=== PATIENT | female | born 1975 | race Caucasian/White ===

== ENCOUNTER 2022-03-05 08:49 | Emergency (ER) | payer BC, SELFPAY ==
[2022-03-05 08:54] VITALS: BP 134/77; PULSE 81; RESP 18; TEMP 37.1; O2SAT 96; BMI 30.8
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
[2022-03-05 09:30] VITALS: PULSE 88; RESP 20; O2SAT 96
--- OUTSIDE RECORDS SUMMARY | 2022-03-05 09:30 | XMS_ITS | Clinical Summary ---
:1975 Author Organization [facility] [place] [address] Care Team Providers Name Role Phone Jennifer Middleton MD Primary Care Provider [phone] Allergies No known active allergies Medications No known medications Active Problems No known active problems Immunizations Name Administration Dates Next Due Tdap 07/12/2015 Family History Medical History Relation Name Comments Heart Disease Father Cancer-colon Mother Relation Name Status Comments Father Mother Social History Tobacco Use Types Packs/Day Years Used Date Current Every Day Smoker Cigarettes 0.25 Smokeless Tobacco: Never Used Tobacco Cessation: Ready to Quit: No; Co unseling Given: Yes Alcohol Use Standard Drinks/Week Comments Yes 0 (1 standard drink = 0.6 oz pure alcoho l) occasional Alcohol Habits Answer Date Recorded How often do you have a drink containing alcohol? Not asked How many drinks containing alcohol do you have on a typical Not asked day when you are drinking? How often do you have six or more drinks on one occasion? No t asked Comment: occasional 07/12/2015 Sex Assigned at Date Recorded Not on file Obstetrics History Para Term AB IAB SAB Ectopic Multiple Living Live Births 5 1 1 4 2 2 1 Date Outcome GA Total Labor/2nd/3rd Weight Sex Delivery Anes PTL Pooja A 1 A5 Name Clin Labor Ectopic Ectopic SAB SAB 08/10 Term 40w F Vag 0d Last Filed Vital Signs Vital Sign Reading Time Taken Comments Blood Pressure 122/72 08/16/2015 3:27 PM CDT Pulse 84 08/16/2015 3:27 PM CDT Temperature 37.1 ??C (98.7 ??F) 08/16/2015 3:27 PM CDT Respiratory Rate - - Oxygen Saturation 99% 08/16/2015 3:27 PM CDT Inhaled Oxygen Concentration - - Weight 79.7 kg (175 lb 12.8 oz) 08/16/2015 3:27 PM CDT Height 163.9 cm (5' 4.53) 08/16/2015 3:27 PM CDT Body Mass Index 29.68 08/16/2015 3:27 PM CDT Plan of Treatment Health Maintenance Due Date Last Done Comments Pneumococcal series for age 19-64 (1 - 1982 PCV) Hepatitis C screening for age 18-79 1994 Depression screening for age 12+ 07/12/2016 07/12/2015 BMI (ht and wt on same day) for age 18+ 08/15/2016 08/16/19 16, 07/12/2015 Pap test for age 21-65 07/12/2018 07/12/2015, 07/12/2015 COVID-19 vaccine series (2 - Booster for 11/05/2020 021 Horacio series) Colonoscopy through age 75 2021 Lipids for age 45-75 2021 07/16/2015 Mammogram for age 45-75 2021 Influenza for age 9-49 02/02/2022 Tetanus booster 07/12/2025 07/12/2015 Tdap Completed 07/12/2015 Results Not on filefrom Last 3 Months Insurance Payer Benefit Plan / Subscriber ID Effective Dates Phone Addre ss Type Group BLUE CROSS BLUE CROSS OF [id number] 2020-Present [address] [address] [place] [address] [facility] Employer 06/04/2000 ATT N: [employer] (Home) [address] [place] [address] Care Teams Manugrapher Relationship Specialty Start Date End Date Jennifer Middleton MD PCP - General Family Practice 04/08/[address] [place] [address]
--- OUTSIDE RECORDS SUMMARY | 2022-03-05 09:31 | XMS_ITS | Encounter Summary ---
:1975 Author Organization [facility] Address [address] [place] [address] Care Team Providers Name Role Phone Unavailable Primary Care Provider Unavailable Reason for Visit Reason Onset Date Comments Outpatient COVID-19 Testing 04/19/2020 Encounter Details Date Type Department Care Team Description 04/19/2020 External Outreach Department of Itzel Vazquez Infection Upper Medicine, [place] [facility] (Primary Clinic, in [place], [address]) [place], [place] [address] [facility] [address] [place], [place] [phone] [id number] (Work) [phone] Social History Tobacco Use Types Packs/Day Years Used Date Smoking Tobacco: Every Day Sex Assigned at Date Recorded Not on file documented as of this encounter Progress Notes Yumiko Thomas ROrlando. - 04/19/2020 8:42 AM CST Encounter created for the drive-through COVID-19 testing. OR SALES OPERATIONS MANAGER documented in this encounter Plan of Treatment Not on filedocumented as of this encounter Procedures Procedure Name Priority Date/Time Associated Diagnosis Comme nts SARS CORONAVIRUS-2 Routine 04/19/2020 8:44 AM Infection Upper Results for this RNA, V SENIOR SALES OPERATIONS MANAGER Respiratory procedure are i n the results section. documented in this encounter Results SARS Coronavirus-2 RNA, V Symptomatic (04/19/2020 8:44 AM SENIOR SALES OPERATIONS MANAGER) [facility] Method Time Signature SARS-CoV-2 Swab, 04/20/2020 [facility] Specimen Nasopharynx 8:19 AM SENIOR SALES OPERATIONS MANAGER Source SARS CoV-2 Undetected Undetected 04/20/2020 [facility] RNA, TMA 8:19 AM SENIOR SALES OPERATIONS MANAGER Comment: SARS-CoV-2 RNA absent. This result does not rule out COVID-19 in the patient, as the sensitivity of the test depends o n the timing of the specimen collection and the quality of the specim en. Result should be correlated with patient's history and clinical presentat ion. ----ADDITIONAL INFORMATION---- This test is performed using the Aptima SARS-CoV-2 assay ([employer] which has received Emergency Use Authori zation (EUA) by the U.S. Food and Drug Administration. Fact sheets for this Emergency Use Autho rization (EUA) assay can be found at the following links: For Healthcare Providers: https://www.[place] a.gov/media/449260/download For Patients: https://www.fda.gov/media/ 386193/download Specimen Anatomical Collection Method Collection Time Receive d Time (Source) Location / / Volume Laterality Varies 04/19/2020 8:44 AM 0 (Nasopharynx) SENIOR SALES OPERATIONS MANAGER 10:04 PM SENIOR SALES OPERATIONS MANAGER Almas Schmidt P.A.-C. LAB MICROBIOLOGY - GENERAL O RDERABLES Performing Organization Address City/State/ZIP Code Phon e Number [facility] [address] [place] [address] [phone] [facility] [place] [address] System in [address] documented in this encounter Visit Diagnoses Diagnosis Infection Upper Respiratory - Primary documented in this encounter Additional Health Concerns Infection Onset Date Last Indicated Resolved Time COVID19 Pending 04/19/2020 04/19/2020 04/20/2020 8:20 AM SENIOR SALES OPERATIONS MANAGER documented as of this encounter
--- OUTSIDE RECORDS SUMMARY | 2022-03-05 09:31 | XMS_ITS | Encounter Summary ---
:1975 Author Organization [facility] Address [address] [place] [address] Care Team Providers Name Role Phone Unavailable Primary Care Provider Unavailable Encounter Details Date Type Department Care Team Description 12/23/[address] [facility] Margo Sanchez M.D. Social History Tobacco Use Types Packs/Day Years Used Date Smoking Tobacco: Never Assessed Sex Assigned at Date Recorded Not on file documented as of this encounter Last Filed Vital Signs Vital Sign Reading Time Taken Comments Blood Pressure 100/64 12/23/2012 9:22 AM CDT Pulse 72 12/23/2012 9:22 AM CDT Temperature - - Respiratory Rate 14 12/23/2012 9:22 AM CDT Oxygen Saturation - - Inhaled Oxygen Concentration - - Weight 75.5 kg (166 lb 7.2 oz) 12/23/2012 9:22 AM CDT Height 165 cm (5' 4.96) 12/23/2012 9:22 AM CDT Body Mass Index 27.73 12/23/2012 9:22 AM CDT documented in this encounter H&P Notes Margo Sanchez M.D. - 12/23/2012 9:11 AM CDT [id number] CHIEF COMPLAINT/REASON FOR VISIT Ruby is here for a Preemployment physical. 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 The completed history and physical form will be scanned into her EMR. I see no contraindications for employment. Her only medical issue is that she smokes but she is stopping on her own. She is currentlydown to 2 cigarettes a day and is soon going to be coming back to 1 a day and then she thinks she should be able to quit and I encouraged her to continue in that process. Margo Sanchez M.D./herbert Electronically Signed By: MARGO SANCHEZ MD On: 12/23/2012 03:29 PM Source: [facility] MHSDOLBEYNONRADSYS Document Id: [id number] documented in this encounter Procedure Notes Veronica Kowalski, L.P.N. - 12/23/2012 9:25 AM CDT Vision Testing Vision Testing Entered On: 12/23/2012 9:26 CDT Performed On: 12/23/2012 9:25 CDT by VERONICA KOWALSKI Vision Testing Corrective Lenses : Contact lenses Eye, Right with Correction : 20/20 Eye, Left w/Correction : 20/20 VERONICA KOWALSKI - 12/23/2012 9:25 CDT Source: [facility] POWERCHART Document Id: [id number] CDT!5 documented in this encounter Miscellaneous Notes Miscellaneous - Margo Sanchez M.D. - 12/23/2012 10:08 AM CDT Ambulatory Patient Summary [address] [address] Visit Information Name: RUBY GRISSOM [facility] Number: [id number] Current Date: 12/23/2012 10:08:42 Physicians Attending Provider: MARGO SANCHEZ MD Primary Care Provider: PCP, ELSEWHERE Your Medications Here is a list of your medications. It is important to take your medications as directed. Use a pillbox or chart to help remind you to take your medications. Please let your doctor or nurse know if you have problems taking your medications. Medication/Strength Dose Route Frequency Indications/Special Instructions/Comments/Notes No Medications found Attention: If you have any medications at home that are not on this list, DO NOT take them until youcontact your provider for clarification. Your Allergies & Intolerances Substance Reaction Symptoms Category Comments No Known Medication Allergies Drug Your Problem List Problem Status Onset Comments None Active Your Upcoming Appointments Date Time Location Reason Provider No Appointments found Your Goals/Additional instructions: Source: [facility] POWERCHART Document Id: [id number] Anthony - Margo Sanchez M.D. - 12/23/2012 10:08 AM CDT Ambulatory Depart Summary [id number] [place] [address] Visit Information Name: RUBY GRISSOM [facility] Number: [id number] Visit Date: 12/23/2012 10:08:41 Attending Provider: MARGO SANCHEZ MD Primary Care Provider: PCP, RUBY CHAVEZ VINITA has been given the following list of medications: Your Medications It is important to take your medications as directed. Use a pill box or chart to help remind you to take your medications. Please let your doctor or nurse know if you have problems taking your medications. Medication/Strength Dose Route Frequency Indications/Special Instructions/Comments/Notes No Medications found Attention: If you have any medications at home that are not on this list, DO NOT take them until youcontact your provider for clarification. Additional Information: Source: [facility] POWERCHART Document Id: [id number] Miscellaneous - Veronica Kowalski, L.P.N. - 12/23/2012 9:22 AM CDT Adult Sap Portal Developer Intake/History Document Has Been Updated Adult Sap Portal Developer Intake/History Entered On: 12/23/2012 9:25 CDT Performed On: 12/23/2012 9:22 CDT by VERONICA KOWALSKI Intake Chief Complaint : [employer] pre employment Temperature Core : 36.9 DegC(Converted to: 98.4 DegF) Peripheral Pulse Rate : 72 /min VERONICA KOWALSKI - 12/23/2012 9:22 CDT Respiratory Rate : 14 /min VERONICA KOWALSKI - 12/23/2012 9:27 CDT Heart Rhythm : Regular Systolic Blood Pressure : 100 mmHg Diastolic Blood Pressure : 64 mmHg NIBP Mean : 76 mmHg BP Location : Left upper extremity Blood Pressure Cuff Size : Regular Height : 165 cm(Converted to: 5 ft 5 inch(es), 64.96 inch(es)) Actual Weight : 75.5 kg(Converted to: 166 lb 7 oz) Weight Source : Standing scale Dosing Weight Clinic : 75.5 kg Clinic BSA : 1.86 Body Mass Index : 27.73 kg/m2 VERONICA KOWALSKI - 12/23/2012 9:22 CDT General Info Information Given By : Patient Languages : [place] VERONICA KOWALSKI - 12/23/2012 9:22 CDT Subjective Pain Symptoms : No VERONICA KOWALSKI - 12/23/2012 9:22 CDT Dependent Habits Tobacco Use/Currently Using : Yes Tobacco Use/Advised to Quit : Yes Smoking Status : Current every day smoker VERONICA KOWALSKI - 12/23/2012 9:22 CDT Tobacco Use Grid Type : Cigarettes VERONICA KOWALSKI - 12/23/2012 9:22 CDT Source: [facility] Document Id: [id number] CDT!3 documented in this encounter Plan of Treatment Not on filedocumented as of this encounter Visit Diagnoses Not on filedocumented in this encounter
--- OUTSIDE RECORDS SUMMARY | 2022-03-05 09:31 | XMS_ITS | Encounter Summary ---
:1975 Author Organization [facility] Address [address] [place] [address] Care Team Providers Name Role Phone Unavailable Primary Care Provider Unavailable Encounter Details Date Type Department Care Team Description 09/28/2020 Orders Only [facility] PCP [facility] Sa bebe Taylor M.D. [address] [place] [address] [phone] (Wo rk) Social History Tobacco Use Types Packs/Day Years Used Date Smoking Tobacco: Every Day Sex Assigned at Date Recorded Not on file documented as of this encounter Plan of Treatment Not on filedocumented as of this encounter Visit Diagnoses Not on filedocumented in this encounter
--- OUTSIDE RECORDS SUMMARY | 2022-03-05 09:31 | XMS_ITS | Encounter Summary ---
:1975 Author Organization [facility] Address [address] [place] [address] Care Team Providers Name Role Phone Unavailable Primary Care Provider Unavailable Encounter Details Date Type Department Care Team Description 04/19/2020 Admin Visit Department of Family Medicine, [facility] [place] in [place], [place] [address] [id number] Social History Tobacco Use Types Packs/Day Years Used Date Smoking Tobacco: Every Day Sex Assigned at Date Recorded Not on file documented as of this encounter Plan of Treatment Not on filedocumented as of this encounter Visit Diagnoses Not on filedocumented in this encounter Additional Health Concerns Infection Onset Date Last Indicated Resolved Time COVID19 Pending 04/19/2020 04/19/2020 04/20/2020 8:20 AM BRIM CUTTER documented as of this encounter
--- OUTSIDE RECORDS SUMMARY | 2022-03-05 09:31 | XMS_ITS | Clinical Summary ---
:1975 Author Organization [facility] Address [address] [place] [address] Care Team Providers Name Role Phone Unavailable Primary Care Provider Unavailable Source Comments Patient records contain information from all sites at [facility]. For routine questions regarding patient records, call [phone] during business hours, M-F 8:00 AM - 5:00 PM Central Time. Record requests for emergency care only can be directed to [phone] at any time.[facility] Social History Tobacco Use Types Packs/Day Years Used Date Smoking Tobacco: Every Day Sex Assigned at Date Recorded Not on file Last Filed Vital Signs Vital Sign Reading [...] Mass Index 27.73 12/23/2012 9:22 AM CDT Plan of Treatment Health Maintenance Due Date Last Done Comments CT Colonography 1975 Cervical Cancer Screening 1975 Cologuard 1975 Colonoscopy 1975 Colorectal Cancer Screening 1975 FIT 1975 Fasting Glucose for Diabetes Screening 1975 HIV Screening 1975 Hepatitis B Vaccines (1 of 3 - 3-dose 1975 series) Hepatitis C Screening 1975 Lipid (Cholesterol) Screening 1975 Mammogram 1975 Pneumococcal vaccine (0-64 years) (1 - 1982 PCV) COVID-19 Vaccine (2 - Booster for Horacio 11/05/20202020 series) Depression Screening (Annual PHQ-2) 06/04/2021 Influenza Vaccine (#1) 2022 DTaP,Tdap,and Td Vaccines (2 - Td or Tdap) 07/12/202507/12, 03/09/2004 Insurance Payer Benefit Plan / Subscriber ID Effective Dates Phone Addre ss Type Group [facility] [id number] 2018-Sharon [phone] [address] PPO [facility] [address] [place] [address]
[2022-03-05] MEDS: ONDANSETRON 2 MG/ML inj 4 MG IVP (09:35)
[2022-03-05] MEDS: 0.9 % SODIUM CHLORIDE 500 ML 500 ML IV (09:35)
[2022-03-05] MEDS: MORPHINE 4 MG/ML INJ IVP (09:36)
[2022-03-05 10:00] VITALS: PULSE 80; RESP 20; O2SAT 98
[2022-03-05] MEDS: HYDROmorphone 0.5 mg/0.5 ml inj IVP ×2 (10:04→12:13)
[2022-03-05 12:00] VITALS: BP 122/62; PULSE 83; RESP 20; O2SAT 95
[2022-03-05 12:11] LABS: Basophils Absolute Auto 0.02 K/uL (0.00-0.30); Basophils Percent Auto 0.2 % (0.0-3.0); Eosinophils Absolute Auto 0.02 K/uL (0.00-0.50); Eosinophils Percent Auto 0.2 % (0.0-7.0); Immature Granulocytes Abs Auto 0.03 K/uL (0.00-0.30); Lymphocytes Percent Auto 19.7 % (20-44); Mean Corpuscular HGB Conc 33 gm/dL (32-36); Mean Corpuscular Hemoglobin 30 pg (26-34); Mean Corpuscular Volume 89 fL (80-100); Monocytes Percent Auto 5.8 % (0.0-11.0); Neutrophils Percent Auto 73.8 % (42.0-72.0); Platelet Count* 302 K/uL (140-440); RDW Coefficient of Variation % 12.8 % (11.5-15.5); Red Blood Count 5.04 m/uL (4.00-5.20); White Blood Count* 10.76 K/uL (4.50-11.00)
[2022-03-05] MEDS: KETOROLAC 15 MG/ML inj IVP (12:13)
[2022-03-05 12:21] LABS: Slide Review Reflex No
[2022-03-05 12:24] LABS: Chloride* 106 mmol/L (96-114); Potassium* 3.8 mmol/L (3.6-5.1); Sodium* 140 mmol/L (135-149)
[2022-03-05 12:27] LABS: Carbon Dioxide* 24 mmol/L (20-32); Creatinine* 0.7 mg/dL (0.5-1.5); Est. Creatinine Clearance* 91.32; Estimated Glomerular Filt Rate 109 ml/min
[2022-03-05 12:28] LABS: Blood Urea Nitrogen* 11 mg/dL (5-24); Calcium* 9.1 mg/dL (8.4-10.6); Glucose* 95 mg/dL (60-115)
[2022-03-05 12:47] LABS: PCR FLU A Negative PCR FLU A (Negative); PCR FLU B Negative PCR FLU B (Negative)
[2022-03-05 13:01] LABS: SARS PCR* Negative SARS-CoV-2 (Negative)
--- NOTE | 2022-03-05 13:21 | ED.NURSE ---
assisted pt dressing, R arm in sling. pt given note for work and instymeds for [place].
== END 2022-03-05 13:24 | disposition home or self-care (01) ==
PROVIDERS: Emergency Provider Family Medicine; PCP Family Medicine
DX: S42.001A Fracture of unspecified part of right clavicle, initial encounter for closed fracture (principal); V86.65XA Passenger of 3- or 4- wheeled all-terrain vehicle (ATV) injured in nontraffic accident, initial encounter; Y93.I9 Activity, other involving external motion; Y92.838 Other recreation area as the place of occurrence of the external cause; Y99.8 Other external cause status
CPT/HCPCS: 36415; 71260; 72125; 73000; 73030; 80048; 85025; 87631; 93005; 96361; 96374; 96375; 96376; 99285; 99291; J1170; J1885; J2270; J2405; J7120; Q9967

== ENCOUNTER 2022-03-09 09:56 | Day surgery (SDC) | payer BC, SELFPAY ==
[2022-03-09] VITALS (13 sets, daily range): BP systolic 100–117; BP diastolic 45–82; PULSE 64–97; RESP 16; TEMP 36.4–37; O2SAT 92–97; BMI 34.2
--- NOTE | 2022-03-09 | CRLHL7_ITS ---
For Patients: As a result of the Cures Act, medical imaging exams and procedure reports are released immediately into your electronic medical record. You may view this report before your referring provider. If you have questions, please contact your health care provider. Indication: Intraop Technique: Single view of the right clavicle Comparison: No comparison Findings: Postsurgical fixation of a comminuted right clavicle fracture that appears grossly aligned. Postoperative soft tissue swelling and gas. Dictated by Lois Andrew MD @ 03/09/2022 2:40:04 PM (Electronically Signed)
[2022-03-09] MEDS: LACTATED RINGERS 1000 ML 1,000 ML 100 ML IV (10:25)
[2022-03-09] MEDS: SODIUM CHLORIDE 0.9 % (FLUSH) 10 ML SYRINGE IVF (10:25)
[2022-03-09] MEDS: MIDAZOLAM HCL 1 MG/ML inj IVP (11:05)
[2022-03-09] MEDS: fentaNYL 100 MCG/2 ML inj IVP (11:05)
--- NOTE | 2022-03-09 11:16 | SUR.PREOP ---
TIME?OUT:?1100 PT/RN/MDA?VERIFICATION?OF?SURGICAL?SITE,?PROCEDURE,?AND?CONSENT OBTAINED?PRIOR?TO?INVASIVE?PROCEDURE.
--- NOTE | 2022-03-09 11:43 | P.NB_ITS ---
Nerve Block Nerve Block Date Seen: 03/09/22 Type of block requested by surgeon for post-operative analgesia: interscalene Side: right Time out performed: Yes Verification of patient name: Yes Verification of date of : Yes Site marking: site marked Name of person performing procedure: Aston Assistants, if any: Ahsan Continuous monitoring Was continuous monitoring of O2 sat, B/P, chemical reclamation equipment operator, recorded every 15 minutes?: Yes Procedure Checklist: sterile prep, needles and gloves Ultrasound guided. Images saved: Yes Medications given in 5ml increments after negative aspiration: Ropivicaine %: 0.5 mL: 20 Needle gauge: 22 Decadron (mg): 10 Precedex (mcg): 25 Patient tolerated procedure well: Yes Block Charges Block Charge (with Pro Fee): Brachial Plexus Use of Ultrasound Machine for Block: Yes- US Guidance/pain block
--- NOTE | 2022-03-09 12:50 | P.ORPRC_ITS ---
Procedure Note Date of procedure: 03/09/22 Procedure: SURGEON: Kishan Pemberton MD CNC FIELD SERVICE ENGINEER: Angie Campos PA-C PREOPERATIVE DIAGNOSIS: Comminuted and displaced 4 part right clavicle shaft fracture POSTOPERATIVE DIAGNOSIS: Comminuted and displaced 4 part right clavicle shaft fracture NAME OF OPERATION: ORIF ANESTHESIA: General ESTIMATED BLOOD LOSS: 5 mL COMPLICATIONS: None SPECIMENS: None DRAINS: None PREOPERATIVE ANTIBIOTICS: Ancef 2 g INDICATIONS: The patient is a 46-year-old female who sustained a high-energy right clavicle fracture. Given the amount of displacement, ORIF was recommended. The risks, benefits and expected outcomes were discussed in detail. These included but were not limited to: Infection, bleeding, injury to blood vessel or nerve, venous thromboembolism. All questions were answered to their satisfaction. PROCEDURE: General anesthesia was administered. The patient was placed in the lazy beach chair position. The shoulder was prepped and draped in the usual sterile fashion. A longitudinal incision was made over clavicle. Subcutaneous dissection was made with electrocautery to the medial fragment which was subperiosteal exposed. We followed this distally to locate the distal fragment and subperiosteal exposed it as well. Fracture hematoma was removed with the forceps and curette. This was saved for the end of the case. There was a significant amount of midshaft comminution with 2 large butterfly fragments. A Synthes locking clavicle plate was placed over the superior cortex. This was secured with lobster reduction clamps on both the medial and lateral fragments. A cortical screw was placed in the distal fragment. We then placed a locking screw in the distal fragment. We then secured the plate to the medial fragment with a cortical screw. We placed 2 locking and a 2nd cortical screw in the medial fragment, for a total of 4 screws. We placed 2 more screws in the distal fragment for a total of 4. This provided excellent fixation of the fracture, with an excellent reduction. An intraoperative AP view of the left clavicle show an adequate reduction with well placed implants. The wound was irrigated with normal saline. The fracture hematoma was placed in the fracture site. Soft tissues were infiltrated with 10 mL 0.25% Marcaine without epinephrine. We closed the platysma with an 0 Vicryl. Subcutaneous tissues with a 2-0 Vicryl and skin with a 3-0 Monocryl. Glue was used to seal the skin. A dry dressing and sling were applied The patient tolerated the procedure well. There were no apparent complications. They were carefully transferred to the hospital bed and taken to the postanesthesia care unit in satisfactory condition. PLAN: The patient will be discharged to home. Limited active range of motion of the shoulder be allowed for 6 weeks. They will work on active range of motion of the elbow wrist and fingers. They will follow up in the office next week for a wound check and an AP and tangential view of the clavicle, prior to being seen.
--- NOTE | 2022-03-09 13:26 | W.ANESCHARGE ---
Anesthesia Charges Start Date/Time Anesthesia Start Date: 03/09/22 Anesthesia Start Time: 11:12 Stop Date/Time Anesthesia Stop Date: 03/09/22 Anesthesia Stop Time: 13:19 Summary Emergency: No
--- NOTE | 2022-03-09 16:53 | W.ANESCHARGE ---
Anesthesia Charges Start Date/Time Anesthesia Start Date: 03/09/22 Anesthesia Start Time: 11:12 Stop Date/Time Anesthesia Stop Date: 03/09/22 Anesthesia Stop Time: 13:19 Summary Emergency: No
== END 2022-03-09 15:00 | disposition home or self-care (01) ==
PROVIDERS: PCP Family Medicine; Visit Provider Orthopaedic Surgery
PROC: (CPT 23515; principal; 2022-03-09 12:15)
DX: S42.021A Displaced fracture of shaft of right clavicle, initial encounter for closed fracture (principal)
CPT/HCPCS: 23515; 00450; 01630; 64415; 73000; 76942; 84703; C1713; J0330; J1100; J1170; J2250; J2405; J2704; J2795; J3010; J7120

== ENCOUNTER 2022-07-10 15:00 | Outpatient (RCR) | payer BC, SELFPAY | END 2022-08-30 12:03 | disposition home or self-care (01) | PROVIDERS: PCP Family Medicine; Visit Provider Orthopaedic Surgery | DX: Z87.81 Personal history of (healed) traumatic fracture (principal); Z98.890 Other specified postprocedural states; Z51.89 Encounter for other specified aftercare | CPT/HCPCS: 97110; 97161; 97530 ==